=== PATIENT | female | born 1955 | race African-American/Black ===

== ENCOUNTER 2016-12-26 20:45 | Emergency (ER) | payer OTHER ==
[~2016-12-26] VITALS: Ht 167.6 cm; Wt 77.0 kg
[2016-12-27] MEDS ORDERED: DIPHENHYDRAMINE 50MG/ML VIAL IM ONE (06:15)
[2016-12-27] MEDS ORDERED: LORAZEPAM 2MG/ML CPJ IM ONE (06:15)
[2016-12-27 06:52] LABS: BASOPHILS % 1.2 % (0.0-2.0); EOSINOPHILS % 1.1 % (0.0-5.0); HEMATOCRIT. 40.1 % (36.0-48.0); HEMOGLOBIN. 13.6 g/dL (12.0-16.0); LYMPHOCYTES % 30.5 % (20.0-50.0); MEAN CORPUSCULAR HEMOGLOBIN 30.2 pg (28.0-32.0); MEAN PLATELET VOLUME 7.9 fl (7.4-10.4); MONOCYTES % 10.3 % (2.0-8.0); NEUTROPHILS % 56.9 % (40.0-76.0); PLATELET 305 x1000/uL (130-400)
[2016-12-27 06:59] LABS: CARBON DIOXIDE 32 mEq/L (21-32)
[2016-12-27 07:02] LABS: ETHANOL BLOOD < 10 mg/dL
[2016-12-27 07:06] LABS: CHLORIDE 98 mEq/L (98-107)
[2016-12-27 07:47] LABS: CLARITY URINE CLEAR (CLEAR); COLOR URINE YELLOW (YELLOW); GLUCOSE URINE NEGATIVE (NEGATIVE); KETONES URINE 1+ (NEGATIVE); LEUKOCYTE ESTERASE URINE 2+ (NEGATIVE); NITRITE URINE NEGATIVE (NEGATIVE); OCCULT BLOOD URINE NEGATIVE (NEGATIVE); PH URINE 5.5 (4.5-8.0); PROTEIN URINE TRACE (NEGATIVE); SPECIFIC GRAVITY URINE 1.027 (1.005-1.030); UROBILINOGEN URINE 0.2 E.U./dL (0.2-1.0)
[2016-12-27 08:09] LABS: *AMPHETAMINES SCREEN URINE PRESUMTIVE POSITIVE (NEGATIVE); *BARBITURATES SCREEN URINE NEGATIVE (NEGATIVE); *BENZODIAZEPINES SCREEN URINE NEGATIVE (NEGATIVE); *COCAINE SCREEN URINE NEGATIVE (NEGATIVE); CANNABINOID URINE SCREEN NEGATIVE (NEGATIVE); METHADONE URINE SCREEN NEGATIVE (NEGATIVE); OPIATES URINE SCREEN NEGATIVE (NEGATIVE); PHENCYCLIDINE URINE SCREEN NEGATIVE (NEGATIVE)
[2016-12-27 12:15] VITALS: BP 126/82
== END 2016-12-27 12:35 | disposition home or self-care (01) ==
LOC: ER 21:12
DX: F15.10 Other stimulant abuse, uncomplicated (principal); F99 Mental disorder, not otherwise specified; F43.10 Post-traumatic stress disorder, unspecified
CPT/HCPCS: 36415; 80053; 80305; 80307; 80329; 81001; 85025; 96372; 99284; G0482; J1200; J2060